=== PATIENT | female | born 1960 | race Caucasian/White ===

== ENCOUNTER 2017-04-11 06:09 | Inpatient (IN) | payer OTHER ==
--- NOTE | 2017-04-06 11:52 | HP ---
DATE OF ADMISSION: 04/11/2017 SURGERY DATE: 04/12/[address] Urbina: Thank you for asking me to see this pleasant 56-year-old woman who sustained an injury to her right ankle when she had a heavy object falling on it. The patient will require surgery for arthrodesis o f the third and fourth transmetatarsal bones as well as arthroplasty. The patient will require a 1 day stay at the hospital. PAST MEDICAL HISTORY: Positive for diabetes, hyperlipidemia and arthritis. SOCIAL HISTORY: She is a nonsmoker, does not drink significant alcohol. CURRENT MEDICATIONS: Include: 1. Zocor. 2. Metformin. PAST SURGICAL HISTORY: Include arthroscopy of her knee, sections and cholecystectomy. FAMILY HISTORY: The patient was born in [place]. She is with 2 grown children, mother is kt ing. Four siblings are also alive and well. REVIEW OF SYSTEMS: Generally unremarkable. She does need glasses. There has been no diabetic dalal ges in her retina. There is no cough, shortness of breath or exertional chest pain. GI and both asymptomatic. There is no numbness or tingling in her distal extremities. Obviously there is some pain in her ankle from the injury. Endocrine/diabetes: She takes metformin 1 tablet daily with no rmal blood sugars. No evidence of other complications. PHYSICAL EXAMINATION: GENERAL: She is a pleasant, alert woman in no acute distress. VITAL SIGNS: Blood pressure is 120/70, pulse 72. She is afebrile. She is 5 feet 1/2 inches tall, weighs 278 pounds with a BMI greater than 50. HEENT: Unremarkable. NECK: Supple. CHEST: Sounds clear to percussion and auscultation. HEART: Tones are regular, no murmurs. ABDOMEN: Soft, without palpable mass or tenderness. It is obese. EXTREMITIES: No clubbing, cyanosis, or edema. No significant arthritis. There is right ankle pain with range of motion and eversion. INITIAL IMPRESSION: 1. Stress fracture of her right foot. 2. Diabetes mellitus. Hemoglobin A1c is 6.6. She has a normal fasting blood sugar. 3. Hyperlipidemia, on Zocor. She has a left bundle branch block by electrocardiogram. DISCUSSION: At this time, there is no medical contraindications to proceeding with surgery. Diabet es is well controlled. She should abstain from using her metformin the day before surgery. Chest x -ray/cardiogram as noted. Thank you for asking us to see her at this time. We [facility] be [facility]. Dictated By: FERNANDA POSADA MD SR/NTS Conf#: [id number] DID#: [id number]
[~2017-04-11] VITALS: Ht 154.9 cm; Wt 125.7 kg
[2017-04-11] VITALS (26 sets, daily range): BP systolic 96–145; BP diastolic 48–90; PULSE 58–98; RESP 12–21; Ht 154.9 cm; Wt 125.7 kg
[~2017-04-11 06:09] MED LIST: ASPI-664 PO; CARV6.25 PO; LEVO50TA83 PO; Lisinopril PO; METF500T4 PO; ZOC10 PO
[2017-04-11] MEDS ORDERED: MIDAZOLAM 1 MG/ML 2 ML INJ ONE ×2 (06:24→11:22)
[2017-04-11] MEDS ORDERED: FENTAnyl 50 MCG/ML VIAL ONE ×2 (06:24→11:13)
[2017-04-11] MEDS ORDERED: NEOSTIGMINE 3 MG/3 ML SYRINGE ONE (06:24)
[2017-04-11] MEDS ORDERED: LIDOCAINE 2% (SDV) 5 ML INJ ONE (06:24)
[2017-04-11] MEDS ORDERED: GLYCOPYRROLATE 0.4 MG INJ ONE (06:24)
[2017-04-11] MEDS ORDERED: ROCURONIUM 50 MG INJ ONE (06:24)
[2017-04-11] MEDS ORDERED: PROPOFOL 20 ML ONE (06:24)
[2017-04-11] MEDS ORDERED: DEXAMETHASONE 4 MG/ML 1 ML INJ ONE (06:25)
[2017-04-11] MEDS ORDERED: LIDOCAINE 2%/EPI 30 ML INJ ONE (06:25)
[2017-04-11] MEDS ORDERED: ONDANSETRON 4 MG INJ ONE (06:25)
[2017-04-11] MEDS ORDERED: ROPIVACAINE 0.5 % 30 ML VIAL ONE (06:25)
[2017-04-11] MEDS ORDERED: hydrALAzine 20 MG INJ IV PRN (06:30)
[2017-04-11] MEDS ORDERED: MIDAZOLAM 1 MG/ML 2 ML INJ IV PRN (06:30)
[2017-04-11] MEDS ORDERED: MEPERIDINE 25 MG INJ IV PRN (06:30)
[2017-04-11] MEDS ORDERED: LABETALOL HCL 20MG INJ IV PRN (06:30)
[2017-04-11] MEDS ORDERED: FENTAnyl 50 MCG/ML VIAL IV PRN ×4 (06:30→12:00)
[2017-04-11] MEDS ORDERED: EPHEDrine SULFATE 50 MG/5 ML SYG IV PRN (06:30)
[2017-04-11] MEDS ORDERED: ONDANSETRON 4 MG INJ IV PRN ×2 (06:30→08:00)
[2017-04-11] MEDS ORDERED: DIPHENHYDRAMINE 50 MG INJ IV PRN ×2 (06:30→11:30)
[2017-04-11] MEDS ORDERED: ATROPINE 1 MG/10 ML SYRINGE IV PRN (06:30)
[2017-04-11] MEDS ORDERED: POLYMYXIN/BACITRACIN 1L IRRIG ONE (06:52)
[2017-04-11] MEDS ORDERED: NEOMYC/POLYMYX/BACIT 30 GM OINT ONE (06:52)
[2017-04-11] MEDS ORDERED: NEOMYC/POLYMYX/BACIT 3.5GM OPH OINT ONE (06:52)
[2017-04-11] MEDS ORDERED: BUPIVACAINE 0.25%/EPI (SDV) 30 ML INJ ONE (06:52)
[2017-04-11] MEDS ORDERED: PROPOFOL 200 MG INJ ONE (07:00)
[2017-04-11] MEDS ORDERED: SUCCINYLCHOLINE CHLORIDE 100 MG/5 ML SYG IV ONE (07:22)
--- NOTE | 2017-04-11 07:30 | HPN ---
Date/Time of Note Date/Time of Note DATE: 04/11/17 TIME: 07:29 Interval H&P Admission Note Pt. seen H&P reviewed: No system changes BJ ALVARADO MD Apr 11, 2017 07:30
[2017-04-11] MEDS ORDERED: CEFAZOLIN 1 GM INJ IV SCH (08:00)
[2017-04-11] MEDS ORDERED: DIPHENHYDRAMINE 25 MG CAP PO PRN (08:00)
[2017-04-11] MEDS ORDERED: morphine 10 MG INJ IV PRN (08:00)
[2017-04-11] MEDS: CEFAZOLIN 2 GM/50 ML (PMX) 50 ML IVPB SCH ×3 (08:10→23:28)
[2017-04-11] MEDS ORDERED: EPHEDrine SULFATE 50 MG/5 ML SYG ONE (08:57)
[2017-04-11] MEDS ORDERED: CEFAZOLIN 1 GM INJ ONE ×4 (10:50)
[2017-04-11] MEDS ORDERED: DIPHENHYDRAMINE 50 MG INJ ONE (11:22)
[2017-04-11] MEDS ORDERED: HYDROmorphONE (0.2 MG/ML) 10ML SYG IV ONE (11:22)
--- NOTE | 2017-04-11 11:27 | OPR ---
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 Over the course of time since the fracture occurred she is now developed significant arthritis at the third metatarsal as well as a pseudoarticulation at the third and fourth metatarsal. I did a diagnostic Marcaine injection in the office to the third TMT joint which did give her pain relief at that time thus indicating her for a arthrodesis at the site in addition to the posttraumatic arthritis seen on the CT scan. Risk note: Patient was expand the risks and benefits of surgery and the patient' s [place] language including but not limited to infection, bleeding, risk of injury to the blood vessels, nerves, ligaments and tendons. Risks of anesthesia , risk of deep vein thrombosis and risk of need for future surgery. Patient acknowledges these risk by signing the surgical consent form. Operative\Procedure Findings Implants: One Arthrex 2.4 mm 4 hole T plate with a 3.0 mm partially-threaded screw Arthro-cell a allograft with cancellus chips and local bone autograft and platelet rich plasma Procedure Description Patient was met in the preoperative holding area and operative site was confirmed the patient and consent. Patient was then given regional block anesthesia in the preoperative holding area and then brought back to the operative theater and placed supine on the operative table. Patient was given preoperative Ancef. Patient was then prepped and draped in normal sterile fashion. A timeout was taken and all parties in the room agreed is a correct patient, extremity and procedure. Tourniquet was brought to 250 mmHg and incision was made over the third and fourth tarsometatarsal joint that was confirmed on fluoroscopy prior to incision. Incision was brought down to the third and fourth TMT joint with care to avoid any neurovascular structures were which were protected throughout the case. The third tarsometatarsal joint was identified and the cartilage service was found to be arthritic in nature and was extensively debrided with osteotomes and curettes. The joint surface was then further prepared with osteotome hatching and K wire packing. Attention was then turned to the third and fourth metatarsal joint pseudoarticulation site which was excised and removed to obtain a nice smooth surface at the mid metatarsal area where there had not been a previous pseudoarticulation. The third TMT joint was irrigated thoroughly and then local autograft as well as arthro-cell allograft was mixed with the patient's platelet rich plasma that had been spun at 2% hematocrit. This was packed into the arthrodesis site and then a K wire was placed from distal to proximal and confirmed in the correct position on both AP and lateral and oblique x-ray. A 3 .0 partially-threaded screw was then placed across the third TMT joint from distal to proximal after it had been countersunk. The foot was held and it neutral with the toes slightly dorsiflexed during the compression portion. A 4 hole T plate was then placed over the third TMT joint and affixed initially on the proximal side and then at the compression hold for further compression followed by the remainder of the screws were placed across the plate. The arthrodesis site was then further packed with bone graft and final x-rays were taken. The plate was shown to be well positioned over the third TMT joint on AP, lateral, oblique. The wound was irrigated and closed in layers with 3-0 Monocryl followed by 4-0 nylon in a vertical mattress fashion. Wound was dressed with Xeroform 4 x 4's soaked in platelet poor plasma and placed in a well-padded short leg splint with 5 ABDs. At the end the case all sponge and needle counts were correct. Patient will be nonweightbearing for the next 6 weeks and then heel weightbearing for the following weeks 6-8. BJ ALVARADO MD Apr 11, 2017 11:27
[2017-04-11] MEDS ORDERED: HYDROmorphONE (0.2 MG/ML) 10ML SYG IV PRN ×3 (11:30)
--- NOTE | 2017-04-11 13:08 | CONS ---
Date/Time of Note Date/Time of Note DATE: 04/11/17 TIME: 13:04 Assessment/Plan Assessment/Plan Problems: (1) Status post right foot surgery Status: Acute Comment: She is in recovery in stable postoperatively. We will continue to work with her to minimize any medical complication maximize ability for full rehabilitative therapy (2) Hyperlipidemia Status: Chronic Comment: Continue statin therapy Qualifiers: Hyperlipidemia type: pure hypercholesterolemia Qualified Code: E78.00 - Pure hypercholesterolemia (3) Morbid obesity with BMI of 50.0-59.9, adult Status: Chronic Comment: Calorie restriction diet (4) Diabetes mellitus type 2 in obese Status: Chronic Comment: On long-term oral therapy. Continue this and diabetic diet. No evidence of complications Consultation Date/Type/Reason Admit Date/Time Apr 11, 2017 at 06:09 Initial Consult Date 04/06/2017, date of surgery April 11, 2017 this note is for the postoperative visit Type of Consultation: Internal medicine Reason for Consultation Diabetes mellitus type 2; hyperlipidemia; obesity with possible sleep apnea. Referring Provider: BJ ALVARADO MD 24 HR Interval Summary Free Text/Dictation Whitney 56-year-old woman lying in bed in recovery room postoperatively. No offered complaints. She reports her pain is well controlled. Constitutional: no complaints Detailed Summary Respiratory: no complaints Cardiovascular: no complaints Gastrointestinal: no complaints Genitourinary: no complaints Exam/Review of Systems Vital Signs Vitals Vital Signs Date Time Temp Pulse Resp B/P Pulse Ox O2 Delivery O2 Flow Rate FiO2 04/11/17 12:22 63 18 119/62 96 Nasal Cannula 04/11/17 11:48 2.0 04/11/17 11:21 98.2 Exam Constitutional: alert, oriented Neck: non-tender, supple Respiratory: clear to auscultation, normal air movement Cardiovascular: nl pulses, regular rate and rhythm Gastrointestinal: nl liver, spleen, non-tender, soft Musculoskeletal: other (Left foot is in postoperative bandages. She is able to move her toes) Results Results 24 hrs Laboratory Tests Test 04/11/17 06:43 Bedside Glucose 110 Medications Medications Current Medications Oxycodone/ Acetaminophen (Percocet (5/ 325)) 1 tab Q4H PRN PO PRN; Start at 08:00 Morphine Sulfate (morphine) 5 mg Q4H PRN IV PAIN LEVEL 7-10; Start 04/11/17 at 08:00 Ondansetron HCl (Zofran Inj) 4 mg Q4H PRN IV NAUSEA AND/OR VOMITING; Start 04/11 at 08:00 Diphenhydramine HCl 25 mg 25 mg Q4H PRN PO ITCHING; Start 04/11/17 at 08:00 Cefazolin Sodium/ Dextrose (Ancef 2 Gm/50 ml (Pmx)) 50 ml @ 100 mls/hr Q8H IVPB ; Start 04/11/17 at 08:00; Stop 04/13/17 at 00:29 LETTY TEJEDA MD Apr 11, 2017 13:08
[2017-04-11] MEDS: OXYCODONE/ACETAMINOPHEN (5/325) TAB PO PRN ×2 (13:28→18:18)
[2017-04-11] MEDS ORDERED: GLUCOSE GEL 15 GRAM TUBE BUCCAL PRN (13:30)
[2017-04-11] MEDS ORDERED: DEXTROSE 50% 50 ML SYRINGE IV PRN ×2 (13:30)
[2017-04-11] MEDS ORDERED: GLUCOSE GEL 15 GRAM TUBE PO PRN ×2 (13:30)
[2017-04-11] MEDS ORDERED: GLUCAGON 1 MG INJ IM PRN (13:30)
[2017-04-11] MEDS: ACCU-CHEK XX SCH ×2 (13:51→21:50)
--- NOTE | 2017-04-11 14:15 | RADRPT ---
PROCEDURE: X A right foot arthrodesis CLINICAL INDICATION: Intraoperative fluoroscopy guidance TECHNIQUE: 62 images were obtained on the C-arm during this procedure. COMPARISON: None available FINDINGS: During the procedure, a compression plate and the screw were placed across the third metatarsal tars al joint space for the purpose of arthrodesis. The procedure was performed by Dr. Urbina. There is a total of 92.6 seconds of fluoro time. IMPRESSION: Fluoroscopy-guided operative procedure described above. Physician Renea Date Time Electronically viewed and signed by Physician Renea on 04/11/2017 14:15 /
--- NOTE | 2017-04-11 16:45 | PN ---
Date/Time of Note Date/Time of Note DATE: 04/11/17 TIME: 16:42 Assessment/Plan VTE Prophylaxis VTE Prophylaxis Intervention: other (xarelto) Lines/Catheters IV Catheter Type (from Nrsg): Peripheral IV Urinary Cath still in place: No Subjective 24 Hr Interval Summary Free Text/Dictation post op on floor care. she is alert and fluent preop blood sugars were normal, meds continued to remain at bed rest today, up with p.t. and dc when cleared by dr turner vs ok lungs clear, heart rate is normal no edema, moves all four. Exam/Review of Systems Vital Signs Vitals Vital Signs Date Time Temp Pulse Resp B/P Pulse Ox O2 Delivery O2 Flow Rate FiO2 04/11/17 15:30 98.0 65 18 116/59 97 Nasal Cannula 04/11/17 14:30 2.0 Results Results 24 hrs Laboratory Tests Test 04/11/17 06:43 Bedside Glucose 110 Medications Medications Current Medications Oxycodone/ Acetaminophen (Percocet (5/ 325)) 1 tab Q4H PRN PO PRN Last administered on 04/11/17 13:28; Admin Dose 1 TAB; Start 04/11/17 at 08:00 Morphine Sulfate (morphine) 5 mg Q4H PRN IV PAIN LEVEL 7-10; Start 04/11/17 at 08:00 Ondansetron HCl (Zofran Inj) 4 mg Q4H PRN IV NAUSEA AND/OR VOMITING; Start 04/11 at 08:00 Diphenhydramine HCl 25 mg 25 mg Q4H PRN PO ITCHING; Start 04/11/17 at 08:00 Cefazolin Sodium/ Dextrose (Ancef 2 Gm/50 ml (Pmx)) 50 ml @ 100 mls/hr Q8H IVPB Last administered on 04/11/17 16:18; Admin Dose 100 MLS/HR; Start 04/11/17 at 08:00; Stop 04/13/17 at 00:29 Atorvastatin Calcium (Lipitor) 20 mg HS PO ; Start 04/11/17 at 21:00 Diagnostic Test (Pha) (Accu-Chek) 1 ea 02 XX ; Start 04/12/17 at 02:00 Miscellaneous Information 1 ea NOTE XX ; Start 04/11/17 at 13:30 Glucose (Glutose) 15 gm Q15M PRN PO DECREASED GLUCOSE; Start 04/11/17 at 13:30 Glucose (Glutose) 22.5 gm Q15M PRN PO DECREASED GLUCOSE; Start 04/11/17 at 13:30 Dextrose (D50w Syringe) 25 ml Q15M PRN IV DECREASED GLUCOSE; Start 04/11/17 at 13:30 Dextrose (D50w Syringe) 50 ml Q15M PRN IV DECREASED GLUCOSE; Start 04/11/17 at 13:30 Glucagon (Glucagen) 1 mg Q15M PRN IM DECREASED GLUCOSE; Start 04/11/17 at 13:30 Glucose (Glutose) 15 gm Q15M PRN BUCCAL DECREASED GLUCOSE; Start 04/11/17 at 13: 30 FERNANDA POSADA MD Apr 11, 2017 16:45
[2017-04-11] MEDS: INSULIN ASPART [NOVOLOG] 3 ML PEN SC SCH ×2 (17:55→21:00)
[2017-04-11] MEDS: metFORMIN 500 MG TAB GTB SCH (18:18)
[2017-04-11] MEDS: ATORVASTATIN 20 MG TAB PO SCH (21:10)
[2017-04-12 00:05] VITALS: BP 112/53; RESP 17
[2017-04-12] MEDS: ACCU-CHEK XX SCH ×4 (01:47→20:52)
[2017-04-12 05:00] VITALS: BP 119/58; PULSE 66; RESP 16
[2017-04-12] MEDS: OXYCODONE/ACETAMINOPHEN (5/325) TAB PO PRN ×5 (05:53→22:49)
[2017-04-12] MEDS: INSULIN ASPART [NOVOLOG] 3 ML PEN SC SCH ×4 (07:50→20:56)
[2017-04-12] MEDS: CEFAZOLIN 2 GM/50 ML (PMX) 50 ML IVPB SCH ×3 (08:21→23:02)
[2017-04-12] MEDS: metFORMIN 500 MG TAB GTB SCH ×2 (08:22→17:49)
--- NOTE | 2017-04-12 10:20 | PN ---
Date/Time of Note Date/Time of Note DATE: 04/12/17 TIME: 10:20 Assessment/Plan Lines/Catheters IV Catheter Type (from Nrsg): Saline Lock Fortune in Place (from Nrsg): No Assessment/Plan Assessment/Plan POD#1 S/p Right foot 3rd TMTJ arthrodesis with autograft and allograft, 3/4 MT pseudoarticulation excision - DVT Prophx - SCDS, xarelto - NWB to the RLE - PT to GT - Reg Diet - PO and IV pain control - Appreciate Medicine Following Jocelyne Alvarado MD Subjective 24 Hr Interval Summary Patient is in severe pain today. Denies f/c/n/v Constitutional: no complaints Pain Control: severe Exam/Review of Systems Vital Signs Vitals Vital Signs Date Time Temp Pulse Resp B/P Pulse Ox O2 Delivery O2 Flow Rate FiO2 04/14/17 09:43 98.5 69 20 153/71 95 04/12/17 20:05 Room Air 04/11/17 20:20 2.0 Intake and Output 04/13/17 04/13/17 04/14/17 15:00 23:00 07:00 Intake Total 720 ml 960 ml Output Total 900 ml 900 ml Balance -180 ml 60 ml Exam Constitutional: alert, oriented, well developed Musculoskeletal: other (RLE/ Splint intact, toes wiggle, cr brisk, silt to the exposed toes) BJ ALVARADO MD Apr 12, 2017 10:20
[2017-04-12] MEDS: RIVAROXABAN 10 MG TABLET PO SCH (17:49)
[2017-04-12 19:33] VITALS: BP 119/57; RESP 20
[2017-04-12 20:05] VITALS: BP 119/57; PULSE 70; RESP 18
[2017-04-12] MEDS: ATORVASTATIN 20 MG TAB PO SCH (20:56)
[2017-04-13] MEDS: ACCU-CHEK XX SCH ×4 (01:03→19:55)
[2017-04-13 07:00] VITALS: BP 118/60; RESP 20
[2017-04-13] MEDS: OXYCODONE/ACETAMINOPHEN (5/325) TAB PO PRN ×3 (07:02→20:09)
[2017-04-13] MEDS: INSULIN ASPART [NOVOLOG] 3 ML PEN SC SCH ×4 (07:50→21:00)
[2017-04-13] MEDS: metFORMIN 500 MG TAB GTB SCH ×2 (08:33→17:37)
--- NOTE | 2017-04-13 13:21 | PN ---
Date/Time of Note Date/Time of Note DATE: 04/13/17 TIME: 13:21 Assessment/Plan Lines/Catheters IV Catheter Type (from Nrsg): Saline Lock Fortune in Place (from Nrsg): No Assessment/Plan Assessment/Plan POD#2 S/p Right foot 3rd TMTJ arthrodesis with autograft and allograft, 3/4 MT pseudoarticulation excision - DVT Prophx - SCDS, xarelto - NWB to the RLE - PT to GT. Per PT patient is cleared to go a SNF/ARF but not to her house since there are too many stairs - Reg Diet - PO pain control - DC to SNF likely tomorrow E Ciara RODRIGUEZ Subjective 24 Hr Interval Summary Pain is much better controlled today Exam/Review of Systems Vital Signs Vitals Vital Signs Date Time Temp Pulse Resp B/P Pulse Ox O2 Delivery O2 Flow Rate FiO2 04/14/17 09:43 98.5 69 20 153/71 95 04/12/17 20:05 Room Air 04/11/17 20:20 2.0 Intake and Output 04/13/17 04/13/17 04/14/17 15:00 23:00 07:00 Intake Total 720 ml 960 ml Output Total 900 ml 900 ml Balance -180 ml 60 ml Exam Constitutional: alert, oriented, well developed Musculoskeletal: other (RLE/ Splint intact, toes wiggle, cr brisk, silt to the exposed toes) BJ ALVARADO MD Apr 13, 2017 13:21
[2017-04-13] MEDS: RIVAROXABAN 10 MG TABLET PO SCH (17:37)
--- NOTE | 2017-04-13 17:38 | PN ---
Date/Time of Note Date/Time of Note DATE: 04/13/17 TIME: 17:37 Assessment/Plan VTE Prophylaxis VTE Prophylaxis Intervention: other (xarelto) Lines/Catheters IV Catheter Type (from Nrsg): Saline Lock Urinary Cath still in place: No Subjective 24 Hr Interval Summary Free Text/Dictation unable to take more thjan a few steps without pain, ok at rest have requested aru eval vs home dc alert, lungs clear, hr is ok rt foot in soft splint, no bruising evident Exam/Review of Systems Vital Signs Vitals Vital Signs Date Time Temp Pulse Resp B/P Pulse Ox O2 Delivery O2 Flow Rate FiO2 04/13/17 07:00 98.2 72 20 118/60 97 04/12/17 20:05 Room Air 04/11/17 20:20 2.0 Intake and Output 04/12/17 04/12/17 04/13/17 15:00 23:00 07:00 Intake Total 50 ml 970 ml 1250 ml Output Total 350 ml 1300 ml Balance 50 ml 620 ml -50 ml Results Results 24 hrs Laboratory Tests Test 04/12/17 17:48 04/12/17 20:51 04/13/17 08:32 04/13/17 11:34 Bedside Glucose 100 99 89 91 Medications Medications Current Medications Oxycodone/ Acetaminophen (Percocet (5/ 325)) 1 tab Q4H PRN PO PRN Last administered on 04/12/17 17:14; Admin Dose 1 TAB; Start 04/11/17 at 08:00 Morphine Sulfate (morphine) 5 mg Q4H PRN IV PAIN LEVEL 7-10 Last administered on 04/11/17 23:34; Admin Dose 5 MG; Start 04/11/17 at 08:00 Ondansetron HCl (Zofran Inj) 4 mg Q4H PRN IV NAUSEA AND/OR VOMITING; Start 04/11 at 08:00 Diphenhydramine HCl (Benadryl) 25 mg Q4H PRN PO ITCHING; Start 04/11/17 at 08:00 Atorvastatin Calcium (Lipitor) 20 mg HS PO Last administered on 04/12/17 20:56 ; Admin Dose 20 MG; Start 04/11/17 at 21:00 Diagnostic Test (Pha) (Accu-Chek) 1 ea 02 XX ; Start 04/12/17 at 02:00 Miscellaneous Information 1 ea NOTE XX ; Start 04/11/17 at 13:30 Glucose (Glutose) 15 gm Q15M PRN PO DECREASED GLUCOSE; Start 04/11/17 at 13:30 Glucose (Glutose) 22.5 gm Q15M PRN PO DECREASED GLUCOSE; Start 04/11/17 at 13:30 Dextrose (D50w Syringe) 25 ml Q15M PRN IV DECREASED GLUCOSE; Start 04/11/17 at 13:30 Dextrose (D50w Syringe) 50 ml Q15M PRN IV DECREASED GLUCOSE; Start 04/11/17 at 13:30 Glucagon (Glucagen) 1 mg Q15M PRN IM DECREASED GLUCOSE; Start 04/11/17 at 13:30 Glucose (Glutose) 15 gm Q15M PRN BUCCAL DECREASED GLUCOSE; Start 04/11/17 at 13: 30 Oxycodone/ Acetaminophen (Percocet (5/ 325)) 2 tab Q4H PRN PO PAIN Last administered on 04/13/17t 11:31; Admin Dose 2 TAB; Start 04/12/17 at 13:00 FERNANDA POSADA MD Apr 13, 2017 17:38
[2017-04-13] MEDS ORDERED: ERGOCALCIFEROL 50,000 UNIT CAP PO ONE (20:00)
[2017-04-13] MEDS: ATORVASTATIN 20 MG TAB PO SCH (20:09)
[2017-04-13 21:44] VITALS: BP 148/70; RESP 19
[2017-04-14] MEDS: ACCU-CHEK XX SCH ×4 (02:00→19:55)
[2017-04-14] MEDS: INSULIN ASPART [NOVOLOG] 3 ML PEN SC SCH ×4 (07:50→21:00)
[2017-04-14] MEDS: metFORMIN 500 MG TAB GTB SCH ×2 (08:34→18:08)
[2017-04-14 09:43] VITALS: BP 153/71; RESP 20
--- NOTE | 2017-04-14 11:28 | PN ---
Date/Time of Note Date/Time of Note DATE: 04/14/17 TIME: 11:28 Assessment/Plan Lines/Catheters IV Catheter Type (from Nrsg): Saline Lock Fortune in Place (from Nrsg): No Assessment/Plan Assessment/Plan POD#3 S/p Right foot 3rd TMTJ arthrodesis with autograft and allograft, 3/4 MT pseudoarticulation excision - DVT Prophx - SCDS, xarelto - NWB to the RLE - PT to GT. Per PT patient is cleared to go a SNF/ARF or to her moms house but not to her house since there are too many stairs - Reg Diet - PO pain control - DC home when cleared by PT Jocelyne Alvarado MD Subjective 24 Hr Interval Summary Doing much better. Pain is controlled. Arnol any f/c/n/v Constitutional: no complaints Feeding: advancing diet Pain Control: well controlled Exam/Review of Systems Vital Signs Vitals Vital Signs Date Time Temp Pulse Resp B/P Pulse Ox O2 Delivery O2 Flow Rate FiO2 04/14/17 09:43 98.5 69 20 153/71 95 04/12/17 20:05 Room Air 04/11/17 20:20 2.0 Intake and Output 04/13/17 04/13/17 04/14/17 15:00 23:00 07:00 Intake Total 720 ml 960 ml Output Total 900 ml 900 ml Balance -180 ml 60 ml Exam Constitutional: alert, oriented, well developed Musculoskeletal: other (RLE/ Splint intact, toes wiggle, cr brisk, silt to the exposed toes) BJ ALVARADO MD Apr 14, 2017 11:28
[2017-04-14] MEDS ORDERED: MINERAL OIL 30ML CUP PO ONE (11:30)
[2017-04-14] MEDS ORDERED: DOCUSATE SODIUM 100 MG CAP PO ONE (11:30)
--- NOTE | 2017-04-14 11:30 | DS ---
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 She was felt to be unsafe to be discharged home by PT and patient was kept in house until pain was controlled and she was able to be cleared by PT Home Meds Active Scripts Carvedilol* (Coreg*) 6.25 Mg Tab, 6.25 MG PO BID for 30 Days Prov:SHANA CHAMBERS S. 01/06/15 [Lisinopril] 10 MG TAB No Conflict Check, 10 MG PO DAILY, TAB Prov:SHANA CHAMBERS S. 01/06/15 Reported Medications Aspirin* (Aspirin* EC) 81 Mg Tablet.dr, 81 MG PO DAILY, TAB 01/03/15 Levothyroxine Sodium* (Synthroid*) 50 Mcg Tablet, 50 MCG PO DAILY 03/12/14 Simvastatin (Simvastatin) 10 Mg Tablet, 10 MG PO DAILY 03/12/14 Metformin* (Glucophage*) 500 Mg Tab, 500 MG PO DAILY, TAB 03/12/14 Follow-up Plan 1 week Primary Care Provider Cristina Waddell Time spent on discharge: > 30 minutes Pending Labs Laboratory Tests Test 04/13/17 11:34 04/13/17 17:36 04/13/17 21:15 04/14/17 08:26 Bedside Glucose 91mg/dL (70-220) 75mg/dL (70-220) 113mg/dL (70-220) 93mg/dL (70-220) BJ ALVARADO MD Apr 14, 2017 11:30
--- NOTE | 2017-04-14 11:31 | PDOCDIS ---
Discharge Instructions DIAGNOSIS Discharge Diagnosis: right foot 3/4 TMT OA CONDITION Patient Condition: Good HOME CARE INSTRUCTIONS: Diet Instructions: Regular ACTIVITY: Activity Restrictions: Slowly Increase Activity Rest between Activity Avoid heavy lifting Do not Drive Avoid Heavy Housework No Weight Bearing Activity Restrictions Comment: DO NOT GET FOOT INCISION AREA WET BJ ALVARADO MD Apr 14, 2017 11:31
[2017-04-14] MEDS ORDERED: ERGO500037 PO (11:34)
[2017-04-14] MEDS: OXYCODONE/ACETAMINOPHEN (5/325) TAB PO PRN (11:59)
[2017-04-14] MEDS: RIVAROXABAN 10 MG TABLET PO SCH (18:08)
[2017-04-14 19:52] VITALS: BP 130/61; RESP 18
[2017-04-14] MEDS: ATORVASTATIN 20 MG TAB PO SCH (21:07)
[2017-04-15] MEDS: ACCU-CHEK XX SCH ×2 (02:00→09:50)
[2017-04-15 07:00] VITALS: BP 137/78; RESP 20
[2017-04-15] MEDS: INSULIN ASPART [NOVOLOG] 3 ML PEN SC SCH (07:50)
[2017-04-15] MEDS: metFORMIN 500 MG TAB GTB SCH (08:45)
--- NOTE | 2017-04-15 11:17 | PN ---
Date/Time of Note Date/Time of Note DATE: 04/15/17 TIME: 11:15 Assessment/Plan VTE Prophylaxis VTE Prophylaxis Intervention: SCD's (dc today) Lines/Catheters IV Catheter Type (from Nrsg): Saline Lock Urinary Cath still in place: No Subjective 24 Hr Interval Summary Free Text/Dictation for discharge home, dme in room, hh set up diabetes in good control, continue with usual meds follow up with ortho and usual md Exam/Review of Systems Vital Signs Vitals Vital Signs Date Time Temp Pulse Resp B/P Pulse Ox O2 Delivery O2 Flow Rate FiO2 04/15/17 07:00 97.9 73 20 137/78 98 04/12/17 20:05 Room Air 04/11/17 20:20 2.0 Intake and Output 04/14/17 04/14/17 04/15/17 15:00 23:00 07:00 Intake Total 1200 ml 1440 ml Balance 1200 ml 1440 ml Results Results 24 hrs Laboratory Tests Test 04/14/17 11:34 04/14/17 14:28 04/14/17 18:05 04/14/17 21:05 Bedside Glucose 102 141 102 107 Test 04/15/17 07:02 04/15/17 08:16 04/15/17 09:47 Lab Scanned Report REFERENCE LAB Bedside Glucose 89 113 Medications Medications Current Medications Oxycodone/ Acetaminophen (Percocet (5/ 325)) 1 tab Q4H PRN PO PRN Last administered on 04/12/17 17:14; Admin Dose 1 TAB; Start 04/11/17 at 08:00 Morphine Sulfate (morphine) 5 mg Q4H PRN IV PAIN LEVEL 7-10 Last administered on 04/11/17 23:34; Admin Dose 5 MG; Start 04/11/17 at 08:00 Ondansetron HCl (Zofran Inj) 4 mg Q4H PRN IV NAUSEA AND/OR VOMITING Last administered on 04/15/17 01:57; Admin Dose 4 MG; Start 04/11/17 at 08:00 Diphenhydramine HCl (Benadryl) 25 mg Q4H PRN PO ITCHING; Start 04/11/17 at 08:00 Atorvastatin Calcium (Lipitor) 20 mg HS PO Last administered on 04/14/17 21:07 ; Admin Dose 20 MG; Start 04/11/17 at 21:00 Diagnostic Test (Pha) (Accu-Chek) 1 ea 02 XX ; Start 04/12/17 at 02:00 Miscellaneous Information 1 ea NOTE XX ; Start 04/11/17 at 13:30 Glucose (Glutose) 15 gm Q15M PRN PO DECREASED GLUCOSE; Start 04/11/17 at 13:30 Glucose (Glutose) 22.5 gm Q15M PRN PO DECREASED GLUCOSE; Start 04/11/17 at 13:30 Dextrose (D50w Syringe) 25 ml Q15M PRN IV DECREASED GLUCOSE; Start 04/11/17 at 13:30 Dextrose (D50w Syringe) 50 ml Q15M PRN IV DECREASED GLUCOSE; Start 04/11/17 at 13:30 Glucagon (Glucagen) 1 mg Q15M PRN IM DECREASED GLUCOSE; Start 04/11/17 at 13:30 Glucose (Glutose) 15 gm Q15M PRN BUCCAL DECREASED GLUCOSE; Start 04/11/17 at 13: 30 Oxycodone/ Acetaminophen (Percocet (5/ 325)) 2 tab Q4H PRN PO PAIN Last administered on 04/14/17 11:59; Admin Dose 2 TAB; Start 04/12/17 at 13:00 FERNANDA POSADA MD Apr 15, 2017 11:17
== END 2017-04-15 12:30 | disposition home or self-care (01) | DRG 504 ==
LOC: REC 06:09 → INTOOBSV 06:09 → MS1 13:48 → OBSVTOIN 16:34
PROVIDERS: ADMIT Orthopaedic Surgery; ATTEND Orthopaedic Surgery
PROC: 0SGK0KZ Fusion of Right Tarsometatarsal Joint with Nonautologous Tissue Substitute, Open Approach (ICD-10-PCS; 2017-04-11)
PROC: 0SGK04Z Fusion of Right Tarsometatarsal Joint with Internal Fixation Device, Open Approach (ICD-10-PCS; 2017-04-11)
PROC: 0QBN0ZZ Excision of Right Metatarsal, Open Approach (ICD-10-PCS; 2017-04-11)
PROC: 0SGK07Z Fusion of Right Tarsometatarsal Joint with Autologous Tissue Substitute, Open Approach (ICD-10-PCS; principal; 2017-04-11 07:30)
DX: M19.171 Post-traumatic osteoarthritis, right ankle and foot (principal); Z68.43 Body mass index [BMI] 50.0-59.9, adult; E66.01 Morbid (severe) obesity due to excess calories; E11.9 Type 2 diabetes mellitus without complications; E78.5 Hyperlipidemia, unspecified; Z87.891 Personal history of nicotine dependence; S92.901S Unspecified fracture of right foot, sequela; Z79.4 Long term (current) use of insulin; W20.8XXS Other cause of strike by thrown, projected or falling object, sequela
CPT/HCPCS: 73630; 82306; 82962; 97116; 97163; 97530; 97542; 99217; G0378; J0690; J1100; J1170; J1200; J1815; J2250; J2270; J2405; J2710; J2795; J3010; J7999